=== PATIENT | female | born 1955 | race Caucasian/White ===

== ENCOUNTER → 2018-03-12 | Day surgery (SDC) | payer MEDICAID ==
[~2018-03-12] MED LIST: Lactated Ringers 1,000 ML IV SCH; Propofol 200 MG/20 ML SDV IV ONE
--- NOTE | 2018-03-12 13:48 | OR ---
DATE OF OPERATION: 03/12/2018 PREOPERATIVE DIAGNOSIS: CHRONIC GASTROESOPHAGEAL REFLUX DISEASE WITH DYSPHAGIA. POSTOPERATIVE DIAGNOSIS: CHRONIC GASTROESOPHAGEAL REFLUX DISEASE WITH DYSPHAGIA. SURGEON: Dean Walker MD PROCEDURE: EGD WITH BIOPSY X5, CAROLE. ANESTHESIA: HOUSEKEEPING/LAUNDRY SUPERVISOR due to GERD. COMPLICATIONS: None. SPECIMEN: 1. Duodenal bulb biopsy x1. 2. Antral CAROLE. 3. Fundal biopsy x1. 4. Distal esophageal biopsy x2. FINDINGS: 1. Full-length EGD. 2. Small hiatal hernia with GERD and associated Rodríguez's esophagus. 3. Fundal polyp, likely adenomatous. 4. Duodenitis, duodenal bulb. RECOMMENDATIONS: The patient will be placed on proton pump therapy and have close followup with Cecille Riggs for potential need for Rodríguez's surveillance. INDICATIONS: The patient has been having some ongoing issues with reflux at times. She has never had a prior EGD, Cecille sent her for such. DESCRIPTION OF PROCEDURE: The patient was prepped and draped, placed in the left lateral decubitus position. A lubricated Olympus gastroscope was inserted over a bit and advanced to cricopharyngeus area and easily intubated into the esophagus. The esophageal lining was benign until its most distal portion. There was a small hiatal hernia present with the Z-line crisp around 36 cm. There were 2 small short segment of Rodríguez's which we biopsied. No active ulceration, bleeding, mass, or stricturing. The scope was advanced into the stomach through the pylorus into the second portion of the duodenum. The second portion of duodenum was benign. There was marked duodenitis of the duodenal bulb and biopsy was taken. The scope was brought back into the stomach and retroflexed. The upper fundus does show a small adenomatous polyp, a little bit odd in appearance. We did remove it in its entirety with a forceps. The rest of the cardia portion of the stomach is unremarkable. Upon straightening, the distal fundus and antrum were essentially benign. A CLOtest was obtained. No other polyps, mass, or lesions were seen. Air was suctioned, the scope removed without complication. ISAURO/MELISSA /[id number]
== END ==
LOC: CC.SDS 10:50
PROVIDERS: ATTEND Family Medicine
DX: K21.9 Gastro-esophageal reflux disease without esophagitis (principal); K29.80 Duodenitis without bleeding; K31.89 Other diseases of stomach and duodenum; K44.9 Diaphragmatic hernia without obstruction or gangrene; E11.9 Type 2 diabetes mellitus without complications; Z87.891 Personal history of nicotine dependence; Z79.899 Other long term (current) drug therapy; Z88.1 Allergy status to other antibiotic agents; Z88.5 Allergy status to narcotic agent
CPT/HCPCS: 87081; J2704; J7120

== ENCOUNTER → 2018-04-23 | Day surgery (SDC) | payer MEDICAID ==
--- NOTE | 2018-04-23 11:33 | OR ---
DATE OF OPERATION: 04/23/2018 PREOPERATIVE DIAGNOSIS: POSITIVE COLOGUARD. POSTOPERATIVE DIAGNOSIS: POSITIVE COLOGUARD. SURGEON: Dean Walker MD PROCEDURE: FULL-LENGTH COLONOSCOPY WITH POLYP REMOVAL X4, BIOPSY X1. ANESTHESIA: MESS COOK. COMPLICATIONS: None. SPECIMEN: 1. Cecal biopsy x1, lipoma. 2. Four small sessile adenomas, see report, 3 removed with snare, 1 with forceps. FINDINGS: 1. Full-length colonoscopy. 2. Minimal sigmoid diverticulosis. 3. Small lipoma, cecal pouch. 4. Four separate small sessile polyps, all less than a 0.5 cm, 3 removed with snare, 1 removed with forceps in their entirety. RECOMMENDATIONS: Followup colonoscopy in 3 years. INDICATIONS: The patient presented to her primary provider and had a positive Cologuard. She was then sent for diagnostic colonoscopy. DESCRIPTION OF PROCEDURE: The patient was prepped and draped, placed in the left lateral decubitus position. A lubricated Olympus colonoscope was inserted and safely and easily advanced to the cecum. We were able to directly visualize the ileocecal valve and appendiceal orifice. The bowel prep was adequate. Upon withdrawal of the scope, in the cecal pouch, the patient had a small submucosal lipoma. We did do biopsy of it. It was typical in appearance. Along the right colon, near the hepatic flexure, the patient had a small sessile polyp which was quite flat, less than a 0.5 cm, removed in its entirety with a forceps. The rest of the transverse colon appeared unremarkable. We got near the splenic flexure, near the distal portion of the transverse colon, the patient had a 2nd polyp removed with a snare and suctioned into polyp trap #1. Just past the splenic flexure was a 2nd polyp, also small and likely hyperplastic, removed with a snare and suctioned into polyp trap #2. The descending colon otherwise was benign. In the sigmoid colon, the patient had a few scattered diverticula, but minimal. In the proximal sigmoid colon, the patient had another polyp, also small, removed with a snare and suctioned into polyp trap #3. without complication. The rest of the sigmoid and rectosigmoid junction were unremarkable. The rectal vault appeared benign. Retroflexion showed no perianal lesions. Air was suctioned, scope removed without complication. ISAURO/MELISSA /[id number]
== END ==
LOC: CC.SDS 09:35
PROVIDERS: ATTEND Family Medicine
DX: R19.5 Other fecal abnormalities (principal); D12.5 Benign neoplasm of sigmoid colon; D12.3 Benign neoplasm of transverse colon; K57.30 Diverticulosis of large intestine without perforation or abscess without bleeding; K63.89 Other specified diseases of intestine; M19.90 Unspecified osteoarthritis, unspecified site; K22.70 Barrett's esophagus without dysplasia; K21.9 Gastro-esophageal reflux disease without esophagitis; E78.5 Hyperlipidemia, unspecified; N32.81 Overactive bladder; Z87.891 Personal history of nicotine dependence; Z79.899 Other long term (current) drug therapy; Z88.5 Allergy status to narcotic agent; Z88.1 Allergy status to other antibiotic agents
CPT/HCPCS: 45385; J2704; J7120

== ENCOUNTER 2022-03-26 09:23 | Inpatient (IN) | payer MEDICARE, MEDICAID ==
[2022-03-26] MEDS ORDERED: Ondansetron 4 MG Tab.DIS PO PRN (09:53)
[2022-03-26] MEDS ORDERED: Docusate Sodium 100 MG Cap PO PRN (17:20)
[2022-03-26] MEDS ORDERED: CYCLOBENZAPRINE 10 MG PO PRN (17:20)
[2022-03-26] MEDS ORDERED: ACETAMINOPHEN PO PRN (17:25)
[2022-03-26] MEDS ORDERED: OXYCODONE PO PRN (17:25)
[2022-03-26] MEDS: OXYCODONE PO PRN (19:31)
[2022-03-26] MEDS: Docusate Sodium 100 MG Cap PO SCH (19:31)
[2022-03-26] MEDS: ACETAMINOPHEN PO PRN (19:31)
[2022-03-26] MEDS: Acetaminophen 325 MG Tab PO PRN (19:59)
[2022-03-27] MEDS: Acetaminophen 325 MG Tab PO PRN ×2 (02:26→17:21)
[2022-03-27] MEDS: ACETAMINOPHEN PO PRN ×2 (02:28→09:52)
[2022-03-27] MEDS: OXYCODONE PO PRN ×2 (02:28→09:52)
[2022-03-27] MEDS: LEVOTHYROXINE 25 MCG PO SCH (06:19)
[2022-03-27] MEDS: Aspirin 81 MG Tab.EC PO SCH (07:36)
[2022-03-27] MEDS: Docusate Sodium 100 MG Cap PO SCH ×2 (07:36→19:23)
[2022-03-27] MEDS: Enoxaparin 40 MG/0.4 ML Syringe SUBCUT SCH (12:03)
[2022-03-27] MEDS: Ferrous Sulfate 324 MG Tab.EC PO SCH (12:03)
[2022-03-28] MEDS: ACETAMINOPHEN PO PRN (00:49)
[2022-03-28] MEDS: OXYCODONE PO PRN (00:49)
[2022-03-28] MEDS: LEVOTHYROXINE 25 MCG PO SCH (06:13)
[2022-03-28] MEDS: Docusate Sodium 100 MG Cap PO SCH ×2 (07:23→19:06)
[2022-03-28] MEDS: Aspirin 81 MG Tab.EC PO SCH (07:23)
[2022-03-28] MEDS: Acetaminophen 325 MG Tab PO PRN ×3 (07:30→19:39)
[2022-03-28] MEDS: Enoxaparin 40 MG/0.4 ML Syringe SUBCUT SCH (11:38)
[2022-03-28] MEDS: Ferrous Sulfate 324 MG Tab.EC PO SCH (11:38)
[2022-03-28] MEDS: Nirmatrelvir/Ritonavir 300 MG/100 MG Dose Pack PO SCH ×2 (12:30→19:45)
[2022-03-29] MEDS: ACETAMINOPHEN PO PRN ×2 (04:44→11:35)
[2022-03-29] MEDS: OXYCODONE PO PRN ×2 (04:44→11:35)
[2022-03-29] MEDS: LEVOTHYROXINE 25 MCG PO SCH (06:50)
[2022-03-29] MEDS: Docusate Sodium 100 MG Cap PO SCH ×2 (07:35→19:12)
[2022-03-29] MEDS: Aspirin 81 MG Tab.EC PO SCH (07:35)
[2022-03-29] MEDS: Nirmatrelvir/Ritonavir 300 MG/100 MG Dose Pack PO SCH (07:35)
[2022-03-29] MEDS: Ferrous Sulfate 324 MG Tab.EC PO SCH (11:36)
[2022-03-29] MEDS: Enoxaparin 40 MG/0.4 ML Syringe SUBCUT SCH (11:36)
[2022-03-29] MEDS: Acetaminophen 325 MG Tab PO PRN (20:08)
[2022-03-30] MEDS: ACETAMINOPHEN PO PRN (04:31)
[2022-03-30] MEDS: OXYCODONE PO PRN (04:31)
[2022-03-30] MEDS: Docusate Sodium 100 MG Cap PO SCH ×2 (08:08→20:13)
[2022-03-30] MEDS: Aspirin 81 MG Tab.EC PO SCH (08:08)
[2022-03-30] MEDS: LEVOTHYROXINE 25 MCG PO SCH (08:10)
[2022-03-30] MEDS: Enoxaparin 40 MG/0.4 ML Syringe SUBCUT SCH (12:18)
[2022-03-30] MEDS: Ferrous Sulfate 324 MG Tab.EC PO SCH (12:18)
[2022-03-30] MEDS: Acetaminophen 325 MG Tab PO PRN (12:57)
[2022-03-31] MEDS: LEVOTHYROXINE 25 MCG PO SCH (06:45)
[2022-03-31] MEDS: Aspirin 81 MG Tab.EC PO SCH (07:18)
[2022-03-31] MEDS: Docusate Sodium 100 MG Cap PO SCH ×2 (07:18→19:13)
[2022-03-31] MEDS ORDERED: Meclizine 12.5 MG Tab PO PRN (09:21)
[2022-03-31] MEDS: Acetaminophen 325 MG Tab PO PRN (10:00)
[2022-03-31] MEDS: Enoxaparin 40 MG/0.4 ML Syringe SUBCUT SCH (11:34)
[2022-03-31] MEDS: Ferrous Sulfate 324 MG Tab.EC PO SCH (11:35)
[2022-04-01] MEDS: LEVOTHYROXINE 25 MCG PO SCH (06:37)
[2022-04-01] MEDS: Aspirin 81 MG Tab.EC PO SCH (07:14)
[2022-04-01] MEDS: Docusate Sodium 100 MG Cap PO SCH ×2 (07:14→19:14)
[2022-04-01] MEDS: Acetaminophen 325 MG Tab PO PRN (10:57)
[2022-04-01] MEDS: Ferrous Sulfate 324 MG Tab.EC PO SCH (11:37)
[2022-04-01] MEDS: Enoxaparin 40 MG/0.4 ML Syringe SUBCUT SCH (11:37)
[2022-04-02] MEDS: LEVOTHYROXINE 25 MCG PO SCH (06:30)
[2022-04-02] MEDS: Docusate Sodium 100 MG Cap PO SCH (07:30)
[2022-04-02] MEDS: Aspirin 81 MG Tab.EC PO SCH (07:30)
== END 2022-04-02 12:29 | disposition home health service (06) | DRG 559 ==
LOC: CC.MS 09:47 → UNDOADMIN 15:39 → CC.MS 15:39
PROVIDERS: ADMIT Nurse Practitioner Family; ATTEND Nurse Practitioner Family
DX: Z47.1 Aftercare following joint replacement surgery (principal); U07.1 COVID-19; Z96.642 Presence of left artificial hip joint; E03.9 Hypothyroidism, unspecified; Z88.1 Allergy status to other antibiotic agents; Z88.5 Allergy status to narcotic agent; Z79.890 Hormone replacement therapy
CPT/HCPCS: 97110-GP; 97161-GP; 99306; 99307; 99315; A9270-GY; J1650